=== PATIENT | male | born 1965 | race Caucasian/White ===

== ENCOUNTER 2021-04-08 11:08 | Emergency (ER) | payer OTHER ==
[2021-04-08] MEDS ORDERED: SODIUM CHLORIDE 0.9% 1,000 ML IV STA (12:02)
[2021-04-08 12:21] LABS: Basophils % (A) 1 %; Eosinophils % (A) 0 %; HCT 49.4 % (39.0-53.0); HGB 17.1 gm/dL (13.0-17.5); Lymphocytes # (A) 0.8 k/uL (1.0-4.8); Lymphocytes % (A) 20 %; MCH 32.6 pg (25.0-35.0); MCHC 34.5 g/dL (31.0-37.0); MCV 94.2 fL (80.0-100.0); Mean Platelet Volume 9.2; Monocytes # (A) 0.3 k/uL (0-1.0); Monocytes % (A) 6 %; Neutrophils # (A) 2.9 k/uL (1.3-7.7); Neutrophils % (A) 69 %; Platelet Count 159 k/uL (150-450); RBC 5.24 m/uL (4.30-5.90); RDW 13.2 % (11.5-15.5); WBC 4.1 k/uL (3.8-10.6)
[2021-04-08 12:30] LABS: ALT 53 U/L (4-49); AST 97 U/L (17-59); African American GFR (CKD) >90 (>60 ml/min/1.73 sqM); Albumin 3.9 g/dL (3.5-5.0); Alkaline Phosphatase 46 U/L (38-126); Anion Gap 12 mmol/L; Blood Urea Nitrogen 16 mg/dL (9-20); Calcium 8.3 mg/dL (8.4-10.2); Carbon Dioxide 23 mmol/L (22-30); Chloride 98 mmol/L (98-107); Glucose 105 mg/dL (74-99); Non-African American GFR(CKD) >90 (>60 ml/min/1.73 sqM); Potassium 4.3 mmol/L (3.5-5.1); Sodium 133 mmol/L (137-145); Total Bilirubin 0.6 mg/dL (0.2-1.3)
--- NOTE | 2021-04-08 12:59 | ED ---
General Adult HPI - General Chief complaint: Shortness of Breath Stated complaint: COVID+, Weak Time Seen by Provider: 04/08/21 11:34 Source: patient Mode of arrival: ambulatory Limitations: no limitations - History of Present Illness Initial comments: 55-year-old male presents to the emergency room for a chief complaint of not feeling well. Patient states that about 9 days ago he developed symptoms of coronary. States he has had body aches and nausea. He has also had diarrhea. Patient tested positive with a home test on April 02 and then tested positive again at [facility] days ago. Patient states he has not had an appetite and has not been eating or drinking much. Patient admits to slight cough. He continues to feel fatigued. He does not have any chest pain or shortness of breath.Patient has no other complaints at this time including shortness of breath, chest pain, abdominal pain, nausea or vomiting, headache, or visual changes. - Related Data Home Medications Medication Instructions Recorded Confirmed Acetaminophen [Tylenol] 650 mg PO Q6H PRN 04/08/21 04/08/21 Albuterol Sulfate [Ventolin HFA] 2 puff INHALATION RT-QID PRN 04/08/21 04/08/21 Previous Rx's Medication Instructions Recorded Dexamethasone [Decadron] 6 mg PO DAILY 7 Days #7 tablet 04/08/21 Allergies Allergy/AdvReac Type Severity Reaction Status Date / Time No Known Allergies Allergy Verified 04/08/21 12:43 Review of Systems ROS Statement: Those systems with pertinent positive or pertinent negative responses have been documented in the HPI. ROS Other: All systems not noted in ROS Statement are negative. Past Medical History Past Medical History: No Reported History Past Surgical History: Hernia Repair Past Psychological History: No Psychological Hx Reported Smoking Status: Former smoker Past Alcohol Use History: Daily Past Drug Use History: Marijuana General Exam Limitations: no limitations General appearance: alert, in no apparent distress Head exam: Present: atraumatic Eye exam: Present: normal appearance, PERRL, EOMI. Absent: scleral icterus ENT exam: Present: normal exam, mucous membranes moist Neck exam: Present: normal inspection, full ROM. Absent: tenderness Respiratory exam: Present: normal lung sounds bilaterally. Absent: respiratory distress, wheezes Cardiovascular Exam: Present: regular rate, normal rhythm, normal heart sounds Course Vital Signs 04/08/21 04/08/21 04/08/21 11:22 11:30 13:12 Temperature 98.9 F 99.2 F Pulse Rate 95 95 Respiratory 20 22 Rate Blood Pressure 129/90 136/92 O2 Sat by Pulse 94 L 95 94 L Oximetry Medical Decision Making - Medical Decision Making Vitals are stable. Patient is 94-95% on room air. Denying shortness of breath. CBC is unremarkable aside from lymphocytosis which is likely secondary to positive coronavirus. CMP unremarkable. Chest x-ray shows patchy left perihilar and basilar infiltrates, correlate for COVID-19 which was positive outpatient. At this time patient is stable for discharge home. I did discuss risks versus benefits of regeneron and patient does wish this to be given. He was given strict return parameters. He will otherwise follow up with primary care. - Lab Data Result diagrams: 04/08/21 12:08 04/08/21 12:08 Lab Results 04/08/21 04/08/21 Range/Units 12:08 12:08 WBC 4.1 (3.8-10.6) k/uL RBC 5.24 (4.30-5.90) m/uL Hgb 17.1 (13.0-17.5) gm/dL Hct 49.4 (39.0-53.0) % MCV 94.2 (80.0-100.0) fL MCH 32.6 (25.0-35.0) pg MCHC 34.5 (31.0-37.0) g/dL RDW 13.2 (11.5-15.5) % Plt Count 159 (150-450) k/uL MPV 9.2 Neutrophils % 69 % Lymphocytes % 20 % Monocytes % 6 % Eosinophils % 0 % Basophils % 1 % Neutrophils # 2.9 (1.3-7.7) k/uL Lymphocytes # 0.8 L (1.0-4.8) k/uL Monocytes # 0.3 (0-1.0) k/uL Eosinophils # 0.0 (0-0.7) k/uL Basophils # 0.0 (0-0.2) k/uL Sodium 133 L (137-145) mmol/L Potassium 4.3 (3.5-5.1) mmol/L Chloride 98 (98-107) mmol/L Carbon Dioxide 23 (22-30) mmol/L Anion Gap 12 mmol/L BUN 16 (9-20) mg/dL Creatinine 0.76 (0.66-1.25) mg/dL Est GFR (CKD-EPI)AfAm >90 (>60 ml/min/1.73 sqM) Est GFR (CKD-EPI)NonAf >90 (>60 ml/min/1.73 sqM) Glucose 105 H (74-99) mg/dL Calcium 8.3 L (8.4-10.2) mg/dL Total Bilirubin 0.6 (0.2-1.3) mg/dL AST 97 H (17-59) U/L ALT 53 H (4-49) U/L Alkaline Phosphatase 46 (38-126) U/L Total Protein 7.0 (6.3-8.2) g/dL Albumin 3.9 (3.5-5.0) g/dL Disposition Clinical Impression: COVID-19, Pneumonia due to COVID-19 virus Disposition: HOME SELF-CARE Condition: Good Instructions (If sedation given, give patient instructions): Coronavirus Disease 2019 (COVID-19) Additional Instructions: Take steroid as directed. Follow-up with primary care. If you start to get short of breath or have worsening symptoms return to the emergency room. Prescriptions: Dexamethasone [Decadron] 6 mg PO DAILY 7 Days #7 tablet Is patient prescribed a controlled substance at d/c from ED?: No Referrals: None,Stated [Primary Care Provider] - 1-2 days Time of Disposition: 13:41
[2021-04-08] MEDS ORDERED: SODIUM CHLORIDE 0.9% 50 ML IVPB ONE (13:00)
[2021-04-08] MEDS ORDERED: CASIRIVIMAB (REGN10933) (EUA) 600 MG, IMDEVIMAB (REGN10987) (EUA) 600 MG in SODIUM CHLO... IVPB ONE (13:30)
--- NOTE | 2021-04-08 13:37 | XR ---
EXAMINATION TYPE: XR chest 1V DATE OF EXAM: 04/08/2021 HISTORY: Shortness of breath. COMPARISON: None. TECHNIQUE: Single view of the chest is submitted. FINDINGS: Demonstrated are scattered senescent parenchymal change. Patchy left perihilar and basilar infiltrates. Correlate for Covid 19 pneumonia. The heart is stable. Hilar and mediastinal structures are within normal limits. Degenerative changes are seen of the dorsal spine. IMPRESSION: 1. Patchy left perihilar and basilar infiltrates. Correlate for Covid 19 pneumonia.
[2021-04-08 15:23] VITALS: BP 155/90; PULSE 95; RESP 20; TEMP 97.6
== END 2021-04-08 15:23 | disposition home or self-care (01) ==
LOC: EC 11:08
DX: U07.1 COVID-19 (principal); J12.82 Pneumonia due to coronavirus disease 2019; Z87.891 Personal history of nicotine dependence; F12.90 Cannabis use, unspecified, uncomplicated; Z72.89 Other problems related to lifestyle; Z79.51 Long term (current) use of inhaled steroids
CPT/HCPCS: 36415; 71045; 80053; 85025; 96361; 96365; 99284